=== PATIENT | female | born 1980 | race Hispanic/Latino ===

== ENCOUNTER 2025-01-16 04:48 | Emergency (ER) | payer BC ==
--- OUTSIDE RECORDS SUMMARY | 2025-01-16 04:51 | XMS REPORT | Continuity of Care Document ---
Author Name Unknown Address [address] 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 Name Role Phone PCP, PATIENT DOES NOT HAVE A Primary Care Physic abena Unavailable GLADIS HERRERA Attending Clinician Unavailable GLADIS HERRERA Attending Clinician Unavailable Lab, Ang - Db Attending Clinician Unavailable Gladis Herrera MD Attending Clinician [phone] JIMMIE BACA Attending Clinician Unavailable ARGENIS CASTILLO Attending Clinician Unavailable ARGENIS CASTILLO Attending Clinician Unavailable JOSE_Martha Attending Clinician UnavailKENDRA Dugan Attending Clinician UnavailYUDELKA Hurst Attending Clinician UnavailYUDELKA Bishop Attending Clinician UnavailMELISSA Hess III Attending Clinician Unavailjuanita Arroyo III, MD, James C Attending Clinician [phone] Enedina Chapin Attending Clinician [phone] Cyrus Admitting Clinician Unavaildamaso abbott Payers Payer Name Policy Type Policy Number Effective Date Expirati on Date Source [place] [id number] 2021 00:00:00 [place] [id number] 2021 00:00:00 Problems Condition Name Condition Details Condition Category Status Onset Date Resolution Date Last Treatment Date Treating Clinician Comments Source No known active problems No known active problems Disease Univers [facility] Allergies, Adverse Reactions, Alerts Allergy Name Allergy Type Status Severity Reaction(s) Onset Date Inactive Date Treating Clinician Comments Source Aspirin Propensi ty to adverse reaction s Active Anaphylaxis 10-21 00:00: 00 [facility] Penicill in Propensi ty to adverse reaction s Active Anaphylaxis 10-21 00:00: 00 [facility] ASPIRIN DRUG INGREDI Active Anaphylaxis 10-21 00:00: 00 [facility] PENICILL IN DRUG INGREDI Active Anaphylaxis 10-21 00:00: 00 [facility] NO KNOWN ALLERGIE S Drug Class Active [facility] Social History Social Habit Start Date Stop Date Quantity Comments Source Exposure to SARS-CoV-2 (event) Not sure [facility] Tobacco use and exposure 2024-09-13 00:00:00 2024-09-13 00:00:00 Smokeless tobacco non-user [facility] Alcoholic beverage intake 2024-09-13 00:00:00 2024-09-13 00:00:00 Current drinker of alcohol (finding) [facility] History of Social function 2021-10-21 00:00:00 2021-10-21 00:00:00 [facility] Sex assigned at 1980 00:00:00 1980 00:00:00 [facility] Smoking Status Start Date Stop Date Source Unknown if ever smoked [facility] Never smoked tobacco [facility] Medications Ordered Medication Name Filled Medication Name Start Date Stop Date Current Medication? Ordering Clinician Indication Dosage Frequency Signature (SIG) Comments Components Source ARMUMA THYROID 15 mg tablet 09-13 13:51: 51 Yes TAKE ONE (1) TABLET(S) BY MOUTH EVERY MORNING ON AN EMPTY STOMACH. [facility] medroxyPROG ESTERone (PROVERA) 10 mg tablet 09-13 00:00: 00 Yes [id number] 10mg Take 1 tablet by mouth in the morning. [facility] MOUNJARO 12.5 mg/0.5 mL subcutaneou s injection pen 2023-09 00:00: 00 Yes [facility] benzonatate 100 mg capsule 10-21 00:00: 00 Yes [id number] 100mg Take 1 capsule by mouth every 8 (eight) hours as needed for Cough. [facility] Methylpredn isolone 4 mg tablet 10-21 00:00: 00 10-27 05:59 :00 No [id number] 4mg Take 1 tablet by mouth every 12 (twelve) hours for 5 days. [facility] Vital Signs Vital Name Observation Time Observation Value Comments S ryley Systolic blood pressure 2024-09-13 19:39:00 117 mm[Hg] [facility] Diastolic blood pressure 2024-09-13 19:39:00 78 mm[Hg] [facility] Heart rate 2024-09-13 19:39:00 80 /min [facility] Body temperature 2024-09-13 19:39:00 37 Yojana [facility] Respiratory rate 2024-09-13 19:39:00 18 /min [facility] Body height 2024-09-13 19:39:00 149.9 cm [facility] Body weight 2024-09-13 19:39:00 53.978 kg [facility] BMI 2024-09-13 19:39:00 24.04 kg/m2 [facility] Systolic blood pressure 2021-10-21 23:32:00 138 mm[Hg] [facility] Diastolic blood pressure 2021-10-21 23:32:00 83 mm[Hg] [facility] Heart rate 2021-10-21 23:32:00 86 /min [facility] Respiratory rate 2021-10-21 23:32:00 20 /min [facility] Body height 2021-10-21 23:32:00 149.9 cm [facility] Body weight 2021-10-21 23:32:00 64.048 kg [facility] BMI 2021-10-21 23:32:00 28.52 kg/m2 [facility] Oxygen saturation in Arterial blood by Pulse oximetry 2021-10-21 23:32:00 99 /min [facility] Procedures Procedure Date / Time Performed Performing Clinicia n Source POCT TEST 2024-09-13 00:00:00 Gladis Herrera [facility] Encounters Start Date/Time End Date/Time Encounter Type Admission Type Attending [facility] Facility Care Department Encounter ID Source 2022-04-27 14:33:01 [facility] [id number] [facility] 2022-01-17 13:42:04 Outpatient [facility] [id number] [facility] 2024-10-09 16:00:00 2024-10-09 16:00:00 Outpatient GLADIS DA SILVA VIEN [facility] [id number] [facility] 2024-09-13 14:45:00 2024-09-13 14:45:00 Cardiology Tech Visit Lab, Ang - Gladis Schumacher Lab, Ang - Db [facility] [id number] [facility] 2024-09-13 13:30:00 2024-09-13 14:05:13 Outpatient GLADIS DA SILVA VIEN [facility] [id number] [facility] 2024-09-13 13:30:00 2024-09-13 14:05:13 Office Visit Gladis Herrera [facility] [id number] [facility] 2023-01-04 15:00:00 2023-01-04 15:00:00 Outpatient JIMMIE GIBBS [facility] [id number] [facility] 2022-08-15 15:00:00 2022-08-15 15:00:00 Outpatient ARGENIS HAWKINS YU [facility] [id number] [facility] 2022-07-20 00:00:00 2022-07-20 00:00:00 Outpatient GC_[facility]_ Cooper_J PRIV PRIV [id number] [facility] 2022-07-18 00:00:00 2022-07-18 00:00:00 Outpatient PRIV PRIV [id number] [facility] 2022-05-27 12:00:00 2022-05-27 12:00:00 Outpatient KENDRA JANE [facility] [id number] [facility] 2022-05-27 12:00:00 2022-05-27 12:00:00 Outpatient KENDRA JANE [facility] [id number] [facility] 2022-05-23 13:30:00 2022-05-23 13:30:00 Outpatient KENDRA JANE [facility] [id number] [facility] 2022-05-23 13:30:00 2022-05-23 13:30:00 Outpatient KENDRA JANE [facility] [id number] [facility] 2022-04-06 14:30:00 2022-04-06 14:30:00 Outpatient R YUDELKA LOPEZ CHERYAL [facility] [id number] [facility] 2022-04-06 14:30:00 2022-04-06 14:30:00 Outpatient R YUDELKA LOPEZ CHERYAL [facility] [id number] [facility] 2021-10-21 17:20:00 2021-10-21 17:54:07 Outpatient MELISSA SALINAS III [facility] [id number] [facility] 2021-10-21 17:20:00 2021-10-21 17:40:00 Urgent Care Melissa Arroyo, [facility] [id number] [facility] Results Test Description Test Time Test Comments Results Result Co mments Source [facility], THINPREP, [id number] 17:26:36 * Test Item Value Reference Range Interpretation Comme nts SOURCE: (test code = 8001) Cervical/Endoce rvical SLIDES: (test code = 8011) 1 LMP: (test code = 8021) 04/11/2022 SPECIMEN ADEQUACY: (test code = 27159) (NOTE) Satisfactory for evaluation. Endocervical cells/transformation zone component present. INTERPRETATION: (test code = 40436) NILM/NO EPITH. ABNORMALITY;SEE BELOW --- - NEGATIVE FOR INTRAEPITHELIAL LESION OR MALIGNANCY (NILM) ---- MANAGER FUNCTIONAL : (test code = 8101) JOSSELINE Evangelista (ASCP) LOCATION: (test code = 73399) (NOTE) Specimens proces sed and interpreted at [facility], [address] [place] [address], , CLIA: [id number] CPT: (test code = 8140) (NOTE) 39577 UNLESS OTH ERWISE INDICATED, COMPUTER AIDED AND MANAGER FUNCTIONAL SCREENING PERFORMED. The Pap test is a screening test with an inherent, but low probability of error. Your patient should be reminded to consult you immediately if she experiences any suspicious signs or symptoms, regardless of her Pap test result. An alternate report format containing images or consolidated prior Pap history is available as applicable. CT/NG, NAAT, [id number] 17:18:47* Test Item Value Reference Range Interpretation Comme nts CHLAMYDIA, NAAT, THINPREP (test code = 15031) NEGATIVE NEGATIVE A negative resul t does not exclude low level infection, specimensampling error, or collection error. Testing is performed with the Chad Hannah 6800/8800 systems usingreal-time Polymerase Chain Reaction (PCR) method. GONORRHEA, NAAT, THINPREP (test code = 47512) NEGATIVE NEGATIVE A negative resul t does not exclude low level infection, specimensampling error, or collection error. Testing is performed with the Chad Hannah 6800/8800 systems usingreal-time Polymerase Chain Reaction (PCR) method. UNLESS OTHERWISE INDICATED, ALL TESTING PERFORMED [facility] [employer], [facility]. [address] [place] [address] SUPERVISOR HEAVY EQUIPMENT: TAY ANTOINE M.D. CLIA NUMBER [id number] [facility]. [id number] HPV HIGH RISK WITH GENOTYPE, [id number] 16:42:48* Test Item Value Reference Range Interpretation Comme [facility] HPV HIGH RISK INTERP (test code = 85296) NEGATIVE NEGATIVE HPV 16 (test code = 28812) NEGATIVE HPV 18 (test code = 27724) NEGATIVE HPV, HR, OTHER GENOTYPES (test code = 45145) NEGATIVE Testing methodol ogy is real-time PCR utilizing hydrolysis probes with the Chad Hannah 4800 system. The test individually detects genotypes 16 and 18, as well as the other 12 high risk types (31,33,35,39,45,51,52,56 ,58,59,66,68). The expected result is negative. A negative result does not rule out the presence of HPV not included in the genotype set, a low level of infection or specimen sampling error. HEPATITIS PANEL, [id number] 05:10:59* Test Item Value Reference Range Interpretation Comme nts HEPATITIS A IgM (test code = 05582) NON-REACTIVE NON-REACTIVE HEPATITIS B CORE IgM (test code = 4644) NON-REACTIVE NON-REACTIVE HEPATITIS B SURF AG (test code = 2739) NON-REACTIVE NON-REACTIVE HEPATITIS C ANTIBODY (test code = 4675) NON-REACTIVE NON-REACTIVE INTERPRETATION HEPATITIS A: (test code = 2552) (NOTE) Hepatitis A serology shows no evidence of acute hepatitis A. INTERPRETATION HEPATITIS B: (test code = 09270) (NOTE) Hepatitis B serology shows no evidence of acute hepatitis B andno indication of exposure to hepatitis B virus in the previous janett eight months. INTERPRETATION HEPATITIS C: (test code = 04575) (NOTE) Hepatitis C serology shows no evidence of exposure to hepatitisC virus at this time. It can take up to 12 months after exposure tothe hepatitis C virus for antibodies to become detectable in the blood in certain patients. HIV 1/2 4TH GEN, RFLX [id number] 05:10:59* Test Item Value Reference Range Interpretation Comme nts HIV 1/2 4TH GEN, RFLX CONF ( test code = 3514) NON-REACTIVE NON-REACTIVE [id number] 04:49:47* Test Item Value Reference Range Interpretation Comme nts RPR RESULT (test code = 3501) NON-REACTIVE NON-REACTIVE RPR TITER (test code = 3500) NOT INDIC. TITER NOT INDIC. UNLESS OTHERWISE INDICATED, ALL TESTING PERFORMED [facility] [employer] [address] [place] [address] SUPERVISOR HEAVY EQUIPMENT: TAY ANTOINE M.D. [place] NUMBER [id number] [facility]. [id number] Notes Date/Time Note Provider Source 2024-09-13 14:45:00 Images from the original note were not included. Venipuncture collection performed by clean technique on the right anticubitus. Total of 1 attempts were made. Slight pressure and a bandage/dressing were applied to the site(s). The patient experienced no complications. The following specimens were processed according to instructions and sent to [facility] laboratories per lab order on 09/13/2024: LT BLUE SST 1 Lt Green 1 RST RED LAV PPT DK GREEN (LiHep) DK GREEN (SodH) QUIÑONEZ DK BLUE (K2) DK BLUE (S) ACD Blood Culture NIPT/NTD [facility]
[2025-01-16] MEDS ORDERED: METOCLOPRAMIDE 10 MG/2mL INJ ONE (05:21)
[2025-01-16] MEDS ORDERED: DIPHENHYDRAMINE 50 MG/ML VIAL ONE (05:21)
[2025-01-16] MEDS ORDERED: KETOROLAC 30 MG/ML INJ ONE (05:21)
[2025-01-16] MEDS ORDERED: NA CHLORIDE 0.9% 500 ML ONE (05:21)
[2025-01-16] MEDS ORDERED: NA CHLORIDE 0.9% 100 ML ONE (05:22)
--- NOTE | 2025-01-16 06:14 | ER ---
Nurse's Notes [facility] Name: Rosanna Epperson Age: 44 yrs Sex: Female : 1980 Arrival Date: 01/16/2025 Time: 04:48 Bed 8 Private MD: Diagnosis: Migraine without aura, intractable, without status migrainosus Presentation: 01/16 05:12 Chief complaint: Patient states: headache times 2 days. Coronavirus screen: Client vc1 denies travel out of the [place] in the last 14 days. At this time, the client does not indicate any symptoms associated with coronavirus-19. Ebola Screen: Patient negative for fever greater than or equal to 101.5 degrees Fahrenheit, and additional compatible Ebola Virus Disease symptoms Patient denies exposure to infectious person. Patient denies travel to an Ebola-affected area in the 21 days before illness onset. No symptoms or risks identified at this time. Initial Sepsis Screen: Does the patient meet any 2 criteria? No. Patient's initial sepsis screen is negative. Does the patient have a suspected source of infection? No. Patient's initial sepsis screen is negative. Risk Assessment: Do you want to hurt yourself or someone else? Patient reports no desire to harm self or others. Onset of symptoms was January 14, 2025. 05:12 Method Of Arrival: Ambulatory vc1 05:12 Acuity: LAWRENCE 4 vc1 Triage Assessment: 05:18 Headache History: The patient has had previous headaches and this one is similar to vc1 previous episodes. General: Appears in no apparent distress. Behavior is calm, cooperative, appropriate for age. Pain: Complains of pain in forehead Pain radiates to left parietal area and right parietal area Pain currently is 7 out of 10 on a pain scale. Pain began 2-3 days ago. Also complains of nausea, photophobia. EENT: No deficits noted. No signs and/or symptoms were reported regarding the EENT system. Neuro: Level of Consciousness is awake, alert, obeys commands, Oriented to person, place, time, situation, Appropriate for age Reports headache photophobia. Cardiovascular: Capillary refill < 3 seconds Patient's skin is warm and dry. Respiratory: Airway is patent Respiratory effort is even, unlabored, Respiratory pattern is regular, symmetrical. GI: No deficits noted. No signs and/or symptoms were reported involving the gastrointestinal system. : No deficits noted. No signs and/or symptoms were reported regarding the genitourinary system. Derm: Skin is intact, is healthy with good turgor, Skin is dry, Skin is normal, Skin temperature is warm. Musculoskeletal: Circulation, motion, and sensation intact. Range of motion: intact in all extremities. 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 - Infectious Disease History:: Denies. - Social history:: Smoking status: Patient denies any tobacco usage or history of. - Family history:: not pertinent. Screenin:17 [facility] ED Fall Risk Assessment (Adult) History of falling in the last 3 months, vc1 including since admission No falls in past 3 months (0 pts) Confusion or Disorientation No (0 pts) Intoxicated or Sedated No (0 pts) Impaired Gait No (0 pts) Mobility Assist Device Used No (0 pt) Altered Elimination No (0 pt) Score/Fall Risk Level 0 - 2 = Low Risk Oriented to surroundings, Maintained a safe environment, Educated pt \T\ family on fall prevention, incl call for assistance when getting out of bed, Hourly rounding (assess needs \T\ fall precautionary measures) done. Abuse screen: Denies threats or abuse. Nutritional screening: No deficits noted. Tuberculosis screening: No symptoms or risk factors identified. Assessment: 05:38 General: Appears in no apparent distress. Behavior is calm, cooperative. Pain: kd3 Complains of pain in right parietal area and left parietal area. Neuro: Level of Consciousness is awake, alert, obeys commands, Oriented to person, place, time, situation. Cardiovascular: Patient's skin is warm and dry. Vital Signs: 05:12 BP 110 / 79; Pulse 80; Resp 14; Temp 98; Pulse Ox 100% ; Weight 54.43 kg; Height 4 ft. vc1 11 in. ; Pain 7/10; 06:10 BP 118 / 69; Pulse 85; Resp 18; Pulse Ox 100% on R/A; kd3 05:12 Body Mass Index 24.24 (54.43 kg, 149.86 cm) vc1 05:12 Pain Scale: Adult vc1 Evelia Coma Score: 05:16 Eye Response: spontaneous(4). Motor Response: obeys commands(6). Verbal Response: sp4 oriented(5). Total: 15. 05:23 Eye Response: spontaneous(4). Motor Response: obeys commands(6). Verbal Response: sp4 oriented(5). Total: 15. ED Course: 04:53 Patient arrived in ED. gm2 05:00 Titi Curtis MD is Attending Physician. sp4 05:02 Radha Tejeda, LILY is Primary Nurse. kd3 05:15 Triage completed. vc1 05:17 Arm band placed on right wrist. vc1 05:20 Patient has correct armband on for positive identification. Bed in low position. Call vc1 light in reach. Provided Education on: Plan of care. Pulse ox on. NIBP on. 05:38 Inserted saline lock: 24 gauge in right hand, using aseptic technique. Flushed with 10 kd3 mL NS. 06:10 No provider procedures requiring assistance completed. kd3 06:52 IV discontinued, intact, bleeding controlled, No redness/swelling at site. Pressure kd3 dressing applied. Administered Medications: 05:37 Drug: NS 0.9% IV 500 ml 500 ml IV at 1 bolus once; to be given as a bolus over 30 kd3 minutes Volume: 500 ml; Route: IV; Rate: 1 bolus; Site: right hand; 05:37 Drug: Ketorolac IVP 30 mg IVP once Route: IVP; Site: right hand; kd3 05:38 Drug: metoCLOPramide IVP 10 mg IVP once; over 1 to 2 minutes Route: IVP; Site: right kd3 hand; 05:38 Drug: diphenhydrAMINE IVP 25 mg IVP once Route: IVP; Site: right hand; kd3 Medication: 05:20 VIS not applicable for this client. vc1 Outcome: 06:14 Discharge ordered by . sp4 06:51 Discharged to home ambulatory, kd3 06:51 Condition: stable 06:51 Discharge instructions given to patient, Instructed on discharge instructions, follow up and referral plans. Demonstrated understanding of instructions, follow-up care, medications, Prescriptions given X 2, 06:52 Patient left the ED. kd3 Signatures: Radha Tejeda RN RN kd3 Rhonda De Leon RN RN vc1 Titi Curtis MD MD sp4 Saira Bush 2
--- NOTE | 2025-01-16 06:15 | EDPHYS ---
Physician Documentation [facility] Name: Rosanna Epperson Age: 44 yrs Sex: Female : 1980 Arrival Date: 01/16/2025 Time: 04:48 Bed 8 Private MD: ED Physician Titi Curtis HPI: 01/16 05:00 This 44 yrs old Female presents to ER via Unassigned with complaints of sp4 Headache. 05:16 44-year-old female presents with complaint of moderate severe migraine headache. sp4 Starting 2 days ago. Patient has history of moderate to severe migraine headaches. 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 Patient also has history of epilepsy should take zonisamide daily. In the past Botox has helped to alleviate patient's headache. Patient in the past also took propranolol 20 mg daily for migraine prevention. Sumatriptan and rizatriptan without significant relief. Today patient took ibuprofen 2 tablets prior to arrival. In the past patient also took Fioricet without significant headache relief. Botox is the only measure that has helped with migraine headaches. Patient had a recent break in her Botox treatments.. 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 - Infectious Disease History:: Denies. - Social history:: Smoking status: Patient denies any tobacco usage or history of. - Family history:: not pertinent. ROS: 05:16 Constitutional: Negative for fever, chills, and weight loss, Neuro: Positive for sp4 diffuse headache consistent with migraine 05:16 All other systems are negative, Exam: 05:16 Constitutional: This is a well developed, well nourished patient who is awake, alert, sp4 and in no acute distress. Head/Face: Normocephalic, atraumatic. Eyes: Pupils equal round and reactive to light, extra-ocular motions intact. Lids and lashes normal. Conjunctiva and sclera are not injected. Cornea within normal limits. Periorbital areas with no swelling, redness, or edema. ENT: Nares patent. No nasal discharge, no septal abnormalities noted. Tympanic membranes are normal and external auditory canals are clear. Oropharynx with no redness, swelling, or masses, exudates, or evidence of obstruction, uvula midline. Mucous membranes moist. Neck: Trachea midline, no thyromegaly or masses palpated, and no cervical lymphadenopathy. Supple, full range of motion without nuchal rigidity, or vertebral point tenderness. Chest/axilla: Normal chest wall appearance and motion. Nontender with no deformity. No lesions are appreciated. Cardiovascular: Regular rate and rhythm with a normal S1 and S2. No gallops, murmurs, or rubs. Normal PMI, no JVD. No pulse deficits. Respiratory: Lungs have equal breath sounds bilaterally, clear to auscultation and percussion. No rales, rhonchi or wheezes noted. No increased work of breathing, no retractions or nasal flaring. Abdomen/GI: Soft, with normal bowel sounds. No distension or tympany. No guarding or rebound. No evidence of tenderness throughout. Back: No spinal tenderness. No costovertebral tenderness. Skin: Warm, dry with normal turgor. Normal color with no rashes, no lesions, and no evidence of cellulitis. MS/ Extremity: Pulses equal, no cyanosis. Neurovascular intact. Full, normal range of motion. Neuro: Awake and alert, GCS 15, oriented to person, place, time, and situation. Cranial nerves II-XII grossly intact. Motor strength 5/5 in all extremities. Sensory grossly intact. Psych: Awake, alert, with orientation to person, place and time. Behavior, mood, and affect are within normal limits Vital Signs: 05:12 BP 110 / 79; Pulse 80; Resp 14; Temp 98; Pulse Ox 100% ; Weight 54.43 kg; Height 4 ft. vc1 11 in. ; Pain 7/10; 06:10 BP 118 / 69; Pulse 85; Resp 18; Pulse Ox 100% on R/A; kd3 05:12 Body Mass Index 24.24 (54.43 kg, 149.86 cm) vc1 05:12 Pain Scale: Adult vc1 Evelia Coma Score: 05:16 Eye Response: spontaneous(4). Motor Response: obeys commands(6). Verbal Response: sp4 oriented(5). Total: 15. 05:23 Eye Response: spontaneous(4). Motor Response: obeys commands(6). Verbal Response: sp4 oriented(5). Total: 15. MDM: 05:23 Differential diagnosis: cluster headache, hypertensive headache, migraine, tension sp4 headache, vasomotor headache. Data reviewed: vital signs, nurses notes, old medical records. 05:57 Medical Screening Exam initiated sp4 01/16 05:12 Order name: IV Saline Lock; Complete Time: 05:38 sp4 Administered Medications: 05:37 Drug: NS 0.9% IV 500 ml 500 ml IV at 1 bolus once; to be given as a bolus over 30 kd3 minutes Volume: 500 ml; Route: IV; Rate: 1 bolus; Site: right hand; 05:37 Drug: Ketorolac IVP 30 mg IVP once Route: IVP; Site: right hand; kd3 05:38 Drug: metoCLOPramide IVP 10 mg IVP once; over 1 to 2 minutes Route: IVP; Site: right kd3 hand; 05:38 Drug: diphenhydrAMINE IVP 25 mg IVP once Route: IVP; Site: right hand; kd3 Disposition Summary: 01/16/25 06:14 Discharge Ordered Notes: Location: Home sp4 Problem: new sp4 Symptoms: have improved sp4 Condition: Stable sp4 Diagnosis - Migraine without aura, intractable, without status migrainosus sp4 Followup: sp4 - With: Private Physician - When: 7 - 10 days - Reason: Recheck today's complaints Discharge Instructions: - Discharge Summary Sheet sp4 - Migraine Headache sp4 Forms: - Patient Portal Instructions sp4 Prescriptions: - Fioricet 50-300-40 mg Oral capsule - take 1 capsule ORAL route every 8 hours as needed for pain; 30 capsule; sp4 Refills: 0, Product Selection Permitted - Reglan 10 mg Oral tablet - take 1 tablet ORAL route every 8 hours PRN nausea; 30 tablet; Refills: 0, sp4 Product Selection Permitted Signatures: Radha Tejeda RN RN kd3 Rhonda De Leon RN RN vc1 Titi Curtis MD MD sp4 Corrections: (The following items were deleted from the chart) 05:38 05:12 Labs collected and sent ordered. sp4 kd3
[2025-01-16 07:06] VITALS: TEMP 98; O2SAT 100
[2025-01-16 07:12] VITALS: BP 118/69
== END 2025-01-16 06:52 | disposition home or self-care (01) ==
LOC: ER 04:48
DX: G43.019 Migraine without aura, intractable, without status migrainosus (principal)
CPT/HCPCS: 96375; 96374; 99284; J2765; J1200; J7040